=== PATIENT | female | born 1985 | race American Indian/Alaskan Native ===

== ENCOUNTER 2017-05-28 16:00 | Emergency (ER) | payer MEDICAID ==
[2017-05-28 16:08] VITALS: TEMP 98.5; O2SAT 98
--- NOTE | 2017-05-28 16:54 | ED PDOC ---
Arrival/HPI - General Historian: Patient - History of Present Illness Time/Duration: Other (5 days) Quality: Aching Context: Home <Mela Reardon P - Last Filed: 05/28/17 18:35> <Alan Chavez - Last Filed: 05/30/17 21:12> - General Chief Complaint: Back Pain Time Seen by Provider: 05/28/17 16:54 - History of Present Illness Narrative History of Present Illness (Text): 05/28/17 16:54 This 32 yo female who denies pmh, presents to this ED c/o buttock pain x 5 days. Patient feels like a boil. Patient denies rectal pain, drainage, fever, skin rash, or other somatic complains. (Mela Reardon) Past Medical History - Provider Review Nursing Documentation Reviewed: Yes - Psychiatric Hx Psychophysiologic Disorder: No Hx Substance Use: No <Jossy Reardonim P - Last Filed: 05/28/17 18:35> Family/Social History - Physician Review Nursing Documentation Reviewed: Yes Family/Social History: Other (noncontributory) Smoking Status: Light Smoker < 10 Cigarettes Daily Hx Alcohol Use: Yes Frequency of alcohol use: Socially Hx Substance Use: No <Jossy Reardonim P - Last Filed: 05/28/17 18:35> Allergies/Home Meds <ReardonJossy de la rosaim P - Last Filed: 05/28/17 18:35> <Alan Chavez - Last Filed: 05/30/17 21:12> Allergies/Adverse Reactions: Allergies shellfish derived Allergy (Verified 05/30/17 15:18) SWELLING seafood Allergy (Uncoded 05/30/17 15:18) SWELLING Review of Systems - Review of Systems Constitutional: Normal. absent: Fatigue, Weight Change, Fevers Eyes: Normal ENT: Normal Respiratory: Normal Cardiovascular: Normal Gastrointestinal: Normal Genitourinary Female: Normal Musculoskeletal: Normal Skin: Abscess (buttock) Neurological: Normal Endocrine: Normal Hemo/Lymphatic: Normal Psychiatric: Normal <Jossy Reardonim P - Last Filed: 05/28/17 18:35> Physical Exam Temperature: Afebrile Blood Pressure: Normal Pulse: Regular Respiratory Rate: Normal Appearance: Positive for: Well-Appearing, Non-Toxic, Comfortable Pain Distress: None Mental Status: Positive for: Alert and Oriented X 3 - Systems Exam Head: Present: Atraumatic, Normocephalic Pupils: Present: PERRL Extroacular Muscles: Present: EOMI Conjunctiva: Present: Normal Mouth: Present: Moist Mucous Membranes Neck: Present: Normal Range of Motion Respiratory/Chest: Present: Clear to Auscultation, Good Air Exchange. No: Respiratory Distress, Accessory Muscle Use Cardiovascular: Present: Regular Rate and Rhythm, Normal S1, S2. No: Murmurs Abdomen: No: Tenderness, Distention, Peritoneal Signs Back: Present: Normal Inspection Upper Extremity: Present: Normal Inspection. No: Cyanosis, Edema Lower Extremity: Present: Normal Inspection. No: Edema Neurological: Present: GCS=15, CN II-XII Intact, Speech Normal Skin: Present: Warm, Dry, Normal Color, Induration (buttock tenderness over area of pilonial cyst). No: Rashes Psychiatric: Present: Alert, Oriented x 3, Normal Insight, Normal Concentration <Jossy Reardonim P - Last Filed: 05/28/17 18:35> Vital Signs Temp Pulse Resp BP Pulse Ox 05/28/17 18:37 86 18 148/74 98 05/28/17 16:03 98.5 F 92 H 17 158/98 H 98 Medical Decision Making Re-evaluation Time: 18:35 Reassessment Condition: Re-examined, Improved <Reardon,Nahim P - Last Filed: 05/28/17 18:35> <Alan Chavez - Last Filed: 05/30/17 21:12> ED Course and Treatment: 05/28/17 18:35 Re-evaluation. Patient feels better. Discussed results and plan with patient who expresses understanding. All questions answered and there is agreement with the plan to discharge home with instructions. Patient stable for discharge. Return if symptoms persist or worsen. Patient was recommended to keep wound clean and dry for 2 days. to return to ED for wound check and packing removal in 2 days, or sooner if infection worsen , or fever. (ReardonNahim P) - Medication Orders Current Medication Orders: Discontinued Medications Ibuprofen (Motrin Tab) 600 mg PO STAT STA Stop: 05/28/17 17:15 Last Admin: 05/28/17 17:23 Dose: 600 mg MAR Pain/Vitals Document 05/28/17 17:23 OCS (Rec: 05/28/17 17:23 [facility] [id number]) Pain Reassessment Is This A Pain ReAssessment? Yes Sleep Is patient sleeping during reassessment? No Presence of Pain Presence of Pain Yes Location Pain Location Body Site Back Description Constant Intensity 8 Scale Used Numeric Aggravating Factors ADL's Re-Assess: RUDOLPH Pain/Vitals Document 05/28/17 18:23 OCS (Rec: 05/28/17 18:27 OCS [id number]) Pain Reassessment Is This A Pain ReAssessment? Yes Sleep Is patient sleeping during reassessment? No Presence of Pain Presence of Pain Yes Pain Scale Used Pain Scale Used Numeric Location Upper or Lower Lower Pain Location Body Site Back Description Constant Trimethoprim/Sulfamethoxazole (Bactrim Ds Tab) 1 tab PO STAT STA PRN Reason: Protocol Stop: 05/28/17 17:06 Last Admin: 05/28/17 17:24 Dose: 1 tab - Procedure PROCEDURE NOTE (Text): 05/28/17 18:36 PROCEDURE: INCISION & DRAINAGE Performed by the emergency provider Indication: Abscess Location: buttocks Preparation: The area was prepped and draped in the usual sterile fashion and was cleansed with Betadine. Local infiltration of Lidocaine 1% with Epi was used for anesthesia. Procedure: The most fluctuant portion of the abscess was incised with a #11 scalpel. Approximately 5 mL of purulent was obtained. The abscess was packed 1/4 packing. A dressing was applied by me. Post-Procedure: On exam the abscess is notably less fluctuant. The patient tolerated the procedure well, and there were no complications. (Mela Reardon) - PA / SHOOTING GALLERY OPERATOR / Resident Statement / has reviewed & agrees with the documentation as recorded. <Alan Chavez - Last Filed: 05/30/17 21:12> Disposition/Present on Arrival - Present on Arrival Any Indicators Present on Arrival: No History of DVT/PE: No History of Uncontrolled Diabetes: No Urinary Catheter: No History of Decub. Ulcer: No History Surgical Site Infection Following: None - Disposition Have Diagnosis and Disposition been Completed?: Yes Disposition Time: 18:38 Patient Plan: Discharge <Mela Reardon - Last Filed: 05/28/17 18:35> <Alan Chavez - Last Filed: 05/30/17 21:12> - Disposition Diagnosis: Pilonidal cyst with abscess Disposition: HOME/ ROUTINE Condition: IMPROVED Discharge Instructions (ExitCare): Abscess Incision and Drainage (DC), Pilonidal Cyst (DC) Additional Instructions: Call private doctor for follow up visit in 2 days. return to emergency if unable to see your doctor. Keep wound clean and dry for 2 days. Take medication as instructed. Return to emergency if infection worsen. Prescriptions: Sulfamethoxazole/Trimethoprim [Bactrim DS 800 mg-160 mg] 1 tab PO BID #20 tab Referrals: PCP,NO [Primary Care Provider] - Follow up with primary [facility] [Outside] - Follow up with primary [facility] [Outside] - Follow up with primary Forms: [facility] [facility] (Turkmen), WORK NOTE
[2017-05-28] MEDS ORDERED: LIDOCAIN/EPI 1-0.001% 10ML INJ SOL IJ ONE (17:04)
[2017-05-28] MEDS ORDERED: Tmp-Smz 800 mg-160 mg DS Tab PO STA (17:05)
[2017-05-28] MEDS ORDERED: Lidocaine 1% Inj (20ml) ONE (18:14)
[2017-05-28 18:38] VITALS: BP 148/74; PULSE 86; RESP 18
== END 2017-05-28 19:00 | disposition home or self-care (01) ==
LOC: ED 16:00 → MERGE 16:00 → ED 19:00
DX: L05.01 Pilonidal cyst with abscess (principal)

== ENCOUNTER 2017-05-30 14:59 | Emergency (ER) | payer MEDICAID ==
[2017-05-30 15:23] VITALS: BMI 65.5
--- NOTE | 2017-05-30 17:39 | ED PDOC ---
Arrival/HPI - General Chief Complaint: Wound Check Time Seen by Provider: 05/30/17 16:16 Historian: Patient - History of Present Illness Narrative History of Present Illness (Text): 05/30/17 18:43 32-year-old female presents today for wound check and packing removal of an abscess. Patient's tissue seen in the hospital 2 days ago and had incision and drainage of an abscess on the buttocks. Patient states she is feeling better. Denies fevers or chills. Patient states she is taking antibiotics as prescribed. Patient denies numbness weakness tingling in the extremities. No other complaints Past Medical History - Provider Review Nursing Documentation Reviewed: Yes - Travel History Have you recently traveled outside [place] w/in the past 3 mons?: No - Infectious Disease Hx of Infectious Diseases: None - Cardiac Hx Cardiac Disorders: No - Pulmonary Hx Asthma: Yes - Neurological Hx Neurological Disorder: No - HEENT Hx HEENT Disorder: No - Renal Hx Renal Disorder: No - Endocrine/Metabolic Hx Endocrine Disorders: No - Hematological/Oncological Hx Blood Disorders: No - Integumentary Hx Dermatological Disorder: No - Musculoskeletal/Rheumatological Hx Musculoskeletal Disorders: No - Gastrointestinal Hx Gastrointestinal Disorders: No - Genitourinary/Gynecological Hx Genitourinary Disorders: No - Psychiatric Hx Psychophysiologic Disorder: No Hx Substance Use: No - Anesthesia Hx Anesthesia: No - Suicidal Assessment Feels Threatened In Home Enviroment: No Family/Social History - Physician Review Nursing Documentation Reviewed: Yes Family/Social History: Unknown Family HX Smoking Status: Heavy Smoker > 10 Cigarettes Daily Hx Alcohol Use: Yes Hx Substance Use: No Allergies/Home Meds Allergies/Adverse Reactions: Allergies shellfish derived Allergy (Verified 05/30/17 15:18) SWELLING seafood Allergy (Uncoded 05/30/17 15:18) SWELLING Review of Systems - Review of Systems Constitutional: absent: Fatigue, Fevers Respiratory: absent: SOB, Cough Cardiovascular: absent: Chest Pain, Palpitations Gastrointestinal: absent: Abdominal Pain, Nausea, Vomiting Musculoskeletal: absent: Arthralgias, Back Pain, Neck Pain Skin: Abscess Neurological: absent: Headache, Dizziness Physical Exam Vital Signs Reviewed: Yes Vital Signs Temp Pulse Resp BP Pulse Ox 05/30/17 17:00 98 F 86 18 120/80 99 05/30/17 15:19 98.7 F 108 H 19 120/87 97 Temperature: Afebrile Blood Pressure: Normal Pulse: Tachycardic Respiratory Rate: Normal Appearance: Positive for: Well-Appearing, Non-Toxic, Comfortable Pain Distress: None Mental Status: Positive for: Alert and Oriented X 3 - Systems Exam Head: Present: Atraumatic Respiratory/Chest: Present: Clear to Auscultation Cardiovascular: Present: Regular Rate and Rhythm Neurological: Present: GCS=15, Speech Normal Skin: Present: Warm, Dry, Abscess (Along the buttocks crease there is a small incision with packing in place. There is no surrounding erythema. There is no purulent discharge. There is minimal tenderness.) Psychiatric: Present: Alert, Oriented x 3 Medical Decision Making ED Course and Treatment: 05/30/17 18:44 Patient is nontoxic well-appearing in no distress. Vital signs are stable. packing removed from buttock; no surrounding erythema no purulent discharge. Minimally tender. Dressing applied Patient was advised to use warm compresses warm soaks. pt advised to f/u with surgeon; pt advised to return immediately if symptoms worsen persist or if new symptoms develop Patient verbalizes understanding of discharge instructions and need for immediate followup. all aspects of this case were discussed the attending of record. Impression: Abscess, buttocks, wound check Continue antibiotics as prescribed Continue Motrin every 6 hours as needed for pain Warm compresses and warm soaks frequently Follow-up with a primary care physician within the next 2 days Follow-up with a surgeon within the next 2 days Return immediately if symptoms worsen persist or if new symptoms develop: High fevers, increasing pain, increasing redness, swelling or if any other concerning symptoms develop. Disposition/Present on Arrival - Present on Arrival Any Indicators Present on Arrival: No History of DVT/PE: No History of Uncontrolled Diabetes: No Urinary Catheter: No History of Decub. Ulcer: No History Surgical Site Infection Following: None - Disposition Have Diagnosis and Disposition been Completed?: Yes Diagnosis: Abscess, Encounter for wound re-check Disposition: HOME/ ROUTINE Disposition Time: 17:25 Patient Plan: Discharge Patient Problems: Current Active Problems Problem Status Onset Abscess Acute Encounter for wound re-check Acute Condition: STABLE Discharge Instructions (ExitCare): Skin Abscess, Abscess Incision and Drainage Additional Instructions: Continue antibiotics as prescribed Continue Motrin every 6 hours as needed for pain Warm compresses and warm soaks frequently Follow-up with a primary care physician within the next 2 days Follow-up with a surgeon within the next 2 days Return immediately if symptoms worsen persist or if new symptoms develop: High fevers, increasing pain, increasing redness, swelling or if any other concerning symptoms develop. Referrals: Judson Levine MD [Medical Doctor] - Follow up with primary Willie De La Garza MD [Staff Provider] - Follow up with primary Sabiha Pulido MD [Staff Provider] - [place] up [place] [facility] [place] - [place] [facility] - Follow up with primary Forms: [facility] (Tuvaluan), WORK NOTE
[2017-05-30 17:47] VITALS: BP 120/80; PULSE 86; RESP 18; TEMP 98; O2SAT 99
== END 2017-05-30 17:49 | disposition home or self-care (01) ==
LOC: ED 14:59
DX: Z51.89 Encounter for other specified aftercare (principal); L02.31 Cutaneous abscess of buttock; F17.210 Nicotine dependence, cigarettes, uncomplicated